=== PATIENT | female | born 1985 | race Caucasian/White ===

== ENCOUNTER 2020-08-17 14:39 | Emergency (ER) | payer BC, OTHER ==
[~2020-08-17] VITALS: Ht 167.6 cm; Wt 91.6 kg
[2020-08-17] MEDS ORDERED: KETOROLAC 30 MG/1 ML ONE (15:24)
[2020-08-17] MEDS ORDERED: CYCLOBENZAPRINE 10 MG TABLET ONE (15:25)
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
[2020-08-17] MEDS ORDERED: KETOROLAC 30 MG/1 ML IM ONE (15:30)
[2020-08-17] MEDS ORDERED: CYCLOBENZAPRINE 10 MG TABLET PO ONE (15:30)
--- NOTE | 2020-08-17 15:33 | NUR ---
PT TO RADIOLOGY FOR XRAYS
--- NOTE | 2020-08-17 15:50 | NUR ---
UPON RETURN FROM XRAY PT STATES PAIN HAS IMPROVED
[2020-08-17 15:53] LABS: MICROSCOPIC NOT IND
[2020-08-17 17:16] VITALS: BP 129/72
--- NOTE | 2020-08-17 17:19 | NUR ---
Patient given discharge instructions and they have confirmed that they understand the instructions. Patient ambulatory with steady gait. No questions at time of discharge.
== END 2020-08-17 17:24 | disposition home or self-care (01) ==
LOC: ED 16:23
DX: S39.012A Strain of muscle, fascia and tendon of lower back, initial encounter (principal); S29.012A Strain of muscle and tendon of back wall of thorax, initial encounter; S70.02XA Contusion of left hip, initial encounter; X58.XXXA Exposure to other specified factors, initial encounter; Y93.89 Activity, other specified; Y92.89 Other specified places as the place of occurrence of the external cause; Y99.8 Other external cause status
CPT/HCPCS: 72072; 72110; 73502; 81003; 96372; 99284; J1885